=== PATIENT | male | born 1960 | race Caucasian/White ===

== ENCOUNTER 2025-04-17 21:03 | Inpatient (IN) | payer MEDICAID ==
[~2025-04-17] VITALS: Ht 182.9 cm; Wt 90.9 kg
[2025-04-17 22:03] VITALS: O2SAT 96
[2025-04-17] MEDS: ASPIRIN 325MG TABLET PO ONE (23:00)
[2025-04-17 23:33] LABS: BASOPHILS % 0.9 % (0.0-2.0); EOSINOPHILS % 4.9 % (0.0-5.0); HEMATOCRIT. 30.4 % (42.0-52.0); HEMOGLOBIN. 9.9 g/dL (14.0-18.0); LYMPHOCYTES % 15.2 % (20.0-50.0); MEAN PLATELET VOLUME 7.4 fl (7.4-10.4); MONOCYTES % 10.1 % (2.0-8.0); NEUTROPHILS % 68.9 % (40.0-76.0); PLATELET 305 x1000/uL (130-400); RED BLOOD CELL COUNT 3.84 mill/uL (4.7-6.1); RED CELL DISTRIBUTION WIDTH 15.9 % (11.6-14.6)
[2025-04-17] MEDS: ONDANSETRON HCL 4MG/2ML INJ IV ONE (23:36)
[2025-04-17] MEDS: MORPHINE SULFATE 4 MG/ML INJ (FOR IV/IM USE) IV ONE (23:37)
[2025-04-17 23:42] LABS: CREATININE 1.0 mg/dL (0.6-1.3); UREA NITROGEN BLOOD 17 mg/dL (9-23)
[2025-04-17 23:43] LABS: TROPONIN I HIGH SENSITIVITY 4 ng/L (3.0-53)
[2025-04-18] MEDS: ACETAMINOPHEN 325MG TABLET PO ONE (01:46)
[2025-04-18] MEDS ORDERED: PREG300C PO (03:34)
[2025-04-18] MEDS ORDERED: SIMV-43 PO (03:34)
[2025-04-18] MEDS ORDERED: LISI20TA31 PO (03:34)
[2025-04-18] MEDS ORDERED: CLOP-31 PO (03:34)
[2025-04-18] MEDS ORDERED: PREGABALIN 25MG CAPSULE PO NR (03:45)
[2025-04-18 03:46] VITALS: BP 142/86; PULSE 85; RESP 18; TEMP 36.3624
[2025-04-18 04:01] VITALS: BP 142/86; PULSE 85; RESP 18; TEMP 36.3; O2SAT 96
[2025-04-18] MEDS: PREGABALIN 75MG CAPSULE PO NR (04:01)
[2025-04-18 07:45] LABS: TROPONIN I HIGH SENSITIVITY 5 ng/L (3.0-53)
[2025-04-18 08:00] VITALS: BP 145/88; PULSE 78; RESP 20; TEMP 36.8; O2SAT 100
[2025-04-18] MEDS ORDERED: KETOROLAC 15MG/ML VIAL IV PRN (08:30)
[2025-04-18] MEDS ORDERED: NITROGLYCERIN 0.4MG TABLET SL SL PRN (08:30)
[2025-04-18] MEDS ORDERED: ACETAMINOPHEN 325MG TABLET PO PRN ×2 (08:30)
[2025-04-18] MEDS ORDERED: IPRATROPIUM/ALBUTEROL 0.5-3(2.5)MG/3ML NEB HHN PRN (08:30)
[2025-04-18] MEDS: ENOXAPARIN 40MG/0.4ML SYR SUBCUT SCH (08:30)
[2025-04-18] MEDS ORDERED: CLONIDINE 0.1MG TABLET PO PRN (08:30)
[2025-04-18] MEDS ORDERED: MAGNESIUM/ALUMINUM HYDROXIDE/SIMETHICONE 30ML UDC PO PRN (08:30)
[2025-04-18] MEDS ORDERED: HYDRALAZINE 20MG/ML VIAL IV PRN (08:30)
[2025-04-18] MEDS ORDERED: GUAIFENESIN 200MG/10ML SUGAR FREE UDC PO PRN (08:30)
[2025-04-18] MEDS ORDERED: ONDANSETRON HCL 4MG/2ML INJ IV PRN (08:30)
[2025-04-18] MEDS ORDERED: DOCUSATE SODIUM 100MG CAPSULE PO PRN (08:30)
[2025-04-18] MEDS: MULTIVITAMINS,THER W-MINERALS TABLET PO SCH (08:52)
[2025-04-18] MEDS: ASPIRIN 81MG EC TABLET PO SCH (08:53)
[2025-04-18] MEDS: CLOPIDOGREL 75MG TABLET PO SCH (08:53)
[2025-04-18] MEDS: PANTOPRAZOLE SODIUM 40 MG/VIAL IV SCH (08:53)
[2025-04-18] MEDS: AMLODIPINE 5MG TABLET PO SCH (08:53)
[2025-04-18 11:31] LABS: TRIGLYCERIDE 61 mg/dL (0-150)
[2025-04-18 11:32] LABS: LDL CHOLESTEROL 59 mg/dL (5-100)
[2025-04-18 12:00] VITALS: BP 151/82; PULSE 74; RESP 20; TEMP 37; O2SAT 100
[2025-04-18 12:57] LABS: FOLIC ACID (FOLATE) SERUM 14.72 ng/mL (>5.38)
[2025-04-18 12:59] LABS: VITAMIN B12 SERUM 471 pg/mL (211-911)
[2025-04-18 15:17] LABS: CLARITY URINE CLEAR (CLEAR); COLOR URINE YELLOW (YELLOW); GLUCOSE URINE NEGATIVE (NEGATIVE); KETONES URINE NEGATIVE (NEGATIVE); LEUKOCYTE ESTERASE URINE NEGATIVE (NEGATIVE); NITRITE URINE NEGATIVE (NEGATIVE); OCCULT BLOOD URINE NEGATIVE (NEGATIVE); PH URINE 7.5 (4.5-8.0); PROTEIN URINE NEGATIVE (NEGATIVE); SPECIFIC GRAVITY URINE 1.008 (1.005-1.030); UROBILINOGEN URINE 0.2 E.U./dL (0.2-1.0)
[2025-04-18 15:55] LABS: *AMPHETAMINES SCREEN URINE NEGATIVE (NEGATIVE); *BARBITURATES SCREEN URINE NEGATIVE (NEGATIVE); *BENZODIAZEPINES SCREEN URINE NEGATIVE (NEGATIVE)
[2025-04-18 15:56] LABS: *COCAINE SCREEN URINE NEGATIVE (NEGATIVE); CANNABINOID URINE SCREEN NEGATIVE (NEGATIVE); ECSTASY MDMA SCREEN URINE NEGATIVE (NEGATIVE); METHADONE URINE SCREEN NEGATIVE (NEGATIVE); OPIATES URINE SCREEN NEGATIVE (NEGATIVE); PHENCYCLIDINE URINE SCREEN NEGATIVE (NEGATIVE)
[2025-04-18 16:00] VITALS: BP 162/98; PULSE 75; RESP 20; TEMP 36.9; O2SAT 100
[2025-04-18] MEDS: LISINOPRIL 10MG TABLET PO SCH (16:14)
[2025-04-18] MEDS: PREGABALIN 25MG CAPSULE PO SCH (16:14)
[2025-04-18] MEDS ORDERED: ATORVASTATIN CALCIUM 40MG TABLET PO SCH (21:00)
[2025-04-19] MEDS ORDERED: PANTOPRAZOLE 40MG DR TABLET PO SCH (07:10)
== END 2025-04-18 18:09 | disposition left against medical advice (07) | DRG 198 ==
LOC: ER 21:03 → 8WST 04-18 01:27 → EDBEDREQ 04-18 02:02 → EDBEDREQTM 04-18 02:02 → ENRESERV 04-18 02:08
PROVIDERS: ADMIT Hospitalist; ATTEND Hospitalist
DX: I24.9 Acute ischemic heart disease, unspecified (principal); D50.9 Iron deficiency anemia, unspecified; I25.2 Old myocardial infarction; I10 Essential (primary) hypertension; I48.91 Unspecified atrial fibrillation; R73.9 Hyperglycemia, unspecified; Z53.29 Procedure and treatment not carried out because of patient's decision for other reasons; Z95.0 Presence of cardiac pacemaker; Z95.5 Presence of coronary angioplasty implant and graft; Z95.828 Presence of other vascular implants and grafts
CPT/HCPCS: 36415; 71045; 80048; 80061; 80305; 81003; 82607; 82728; 82746; 83036; 83540; 83550; 84484; 85025; 85044; 93005; 99285; J1650; J2270; J2405; J2470